=== PATIENT | female | born 1960 | race Caucasian/White ===

== ENCOUNTER 2025-09-12 13:07 | Emergency (ER) | payer OTHER, SELFPAY ==
--- OUTSIDE RECORDS SUMMARY | 2025-07-17 03:00 | XMS_ITS ---
Author Organization [facility] Address [address] [place] [address] Care Team Providers Care Enterprise Analyst Name Role Phone None, No PCP Primary Care Provider Ebenezer Santos Unavailable [phone] Maris Kaufman Unavailable Allergies No Known Allergies REASON FOR VISIT annual, pap, mammo, colon, std concerns, concerns, aml/building coordinator Encounters Encounter Location Date Provider Diagnosis [facility] [address] [place] [address] 07/17/2025 Maris Escoto Plan Of Treatment Next Appt Details Provider Name:Meredith ku, 01/29/2026 11:00:00 AM, [address], [address], [address], Progress Notes * KEZIAHAZEL LaimOB:[birth year] (65 yo F)Acc No.[id number]:07/17/2025 Patient:?[place] :?Maris Escoto, MDDOB:1960???Age:65 Y ???Sex:FemaleDate:07/17/2025Phone:[phone]:[address] [place], [place]-[address]Pcp:No PCP None Subjective: * Chief Complaints: * 1 . Annual. 2. Pap. 3. Mammo. 4. Colon. 5. Std concerns. 6. Concerns. 7. Aml/building coordinator. * Medical History: M edical History Verified. * Surgical History: D enies Past Surgical History. * Hospitalization/Major Diagno stic Procedure: D enies Past Hospitalization. * Family History: N o Family History documented.. * Medications: N one * Allergies: N .K.D.A. Objective: * Vitals: Assessment: Plan: * Treatment: * Preventive Medicine: ??YOUR PREVENTIVE WELLNESS PLAN:?Osteoporosis Screening (Bone Density Measurement):?My last bone density was done on:?Never, Under 65yr ?Osteoporosis Screening (Bone Density Measurement):?My last bone density was done on:?Never, Under 65yr Care Plan: * Problems: * Images: Billing Information: * Visit Code: * Procedure Codes: * Electronic signature of Maris Escoto MD on 09/12/2025 at 02:10 PM SCRUB WOMAN Sign off status: Pending * Provider: Gabrielle Escoto MD Date: Generated for Printing/Faxing/eTransmitting on:?09/12/2025 02:10 PM SCRUB WOMAN
--- OUTSIDE RECORDS SUMMARY | 2025-07-17 06:30 | XMS_ITS ---
Author Organization [facility] Address [address] [place] [address] Care Team Providers Care Pharmacist Intern Name Role Phone None, No PCP Primary Care Provider Unavailabl e Ebenezer Hubbard Unavailable [phone] [facility] Unavailable Unav ailable Encounters Encounter Location Date Provider Diagnosis [place] [address] [place] [address] 07/17/2025 [facility] Plan Of Treatment Next Appt Details Provider Name:Meredith ku, 01/29/2026 11:00:00 AM, [address], [address], [address], Progress Notes * Liam SORTOOB:[birth year] (65 yo F)Acc No.[id number]:07/17/2025 Patient:?[place] S[place]TO :?[facility] [place] [facility] CareDOB:1960???Age:65 Y???Sex:FemaleDate:07/17/2025Phone:[phone]:[address] [place], [place]Pcp:No PCP None Subjective: * Chief Complaints: * * Medical History: Objective: * Vitals: Assessment: Plan: * Treatment: * Images: Billing Information: * Visit Code: * Procedure Codes: * Electronic signature of [facility] on 09/12/2025 at 02:10 PM CASING BLOWER Sign off status: Pending * Provider: Juan Carlos [facility] Date: 1 Generated for Printing/Faxing/eTransmitting on:?09/12/2025 02:10 PM CASING BLOWER
[2025-09-12 13:14] VITALS: BP 176/99; PULSE 73; RESP 18; TEMP 36.6; O2SAT 98
--- NOTE | 2025-09-12 13:26 | ED.GENADULT ---
HPI - General Adult General Chief complaint: Hypertension Stated complaint: dizzy, high blood pressure Time Seen by Provider: 09/12/25 13:20 History of Present Illness HPI narrative: Patient presents to the emergency department complaining of hypertension. Patient states she had an appointment yesterday and her blood pressure was elevated. Patient started checking it today and continued to be elevated. Her new primary wanted to place her on blood pressure medication but patient declined. Patient also notes pain in her neck and light headedness for 2 weeks. 65-year-old woman presenting to the emergency department with concern of high blood pressure. Had an appointment yesterday with a new primary care provider and upon reviewing blood pressure is, plan was to initiate treatment. La was hesitant and was recommended for home blood pressure readings. She has continued to monitor her blood pressures and they have been elevated systolic in the 170s. No significant headache or visual changes. She has also been over the last few weeks experiencing episodes of dizziness, unsteadiness. This occurs with movement. She is uncertain exactly what but rolling over in bed can cause it as well as rotating while she is up and about. It is inconsistent. Does feel some nausea. Abdominal pain. No lower extremity edema. She has been struggling with sciatica for some time. Has seen a chiropractor. This is right-sided. Symptoms can however can go all the way to her toes. She has reproducible pain in her right mid buttock she demonstrates. No back pain. Has also been having soreness in her neck bilaterally. Tense. Becomes tearful which she says is not atypical as she is discussing some of these concerns. Pain here by appropriately attentive spouse. No chest pain. No shortness of breath. She has been a little congested nasopharynx. Related Data Home Medications ?Medication ?Instructions ?Recorded ?Confirmed bupropion HCl 300 mg 24 hr tablet, 300 mg PO DAILY 09/12/25 09/12/25 extended release clobetasol topical 09/12/25 dextroamphetamine-amphetamine 20 20 mg PO DAILY 09/12/25 09/12/25 mg tablet (Adderall) lamotrigine 100 mg tablet 100 mg PO DAILY 09/12/25 09/12/25 valacyclovir 500 mg .ROUTE 09/12/25 Previous Rx's ?Medication ?Instructions ?Recorded meclizine 25 mg tablet 25 mg PO TID PRN #15 tabs 09/12/25 Allergies Allergy/AdvReac Type Severity Reaction Status Date / Time No Known Drug Allergies Allergy Verified 09/12/25 13:22 Review of Systems Status of ROS: Reports: 6 or more systems reviewed and unremarkable except as noted in History and below [facility] Social History Smoking Status: Never smoker Do you use any of these nicotine containing products: None How often do you have a drink containing alcohol: monthly or less AUDIT-C Alcohol total score: 1 Non-prescribed substance use: denies use Exam Narrative: Exam Narrative: Very pleasant. NAD. Tearful later in the conversation. Head looks atraumatic. Cranial nerves 2-12 intact. She is moving all extremities without difficulty. She is well-perfused peripherally in lower extremities are without edema. Lungs appear clear. Heart in regular rate and rhythm. No murmur rub or gallop. TMs are clear. No facial swelling erythema or tenderness. Neck is quite tense in the posterior lateral musculature groups, sternocleidomastoid spur. No swelling appreciated here. Jose Raul-Hallpike maneuver does create symptoms with rotation to the left. Not convinced of nystagmus though. Doing these maneuvers and then going to set up also exacerbated her dizziness. Const: Vital Signs, click to edit/add: Vital Signs - 24 hr 09/12/25 13:14 09/12/25 15:40 Temperature 98 F Pulse Rate [Right Pulse Oximeter] 73 69 Respiratory Rate 18 19 Blood Pressure [Ri ght Upper Arm] 176/99 H 169/101 H Pulse Oximetry 98 96 Oxygen Delivery Me thod Room Air Room Air Documenting provider has reviewed patient's vital signs: yes Course Vital Signs Vital signs: Initial Vital Signs Temperature 98 F 09/12/25 13:14 Temperature Source Temporal Artery Scan 09/12/25 13:14 Pulse Rate 73 09/12/25 13:14 Pulse Rhythm Regular 09/12/25 13:14 Pulse Strength 3+ Normal 09/12/25 13:14 Respiratory Rate 18 09/12/25 13:14 Blood Pressure 176/99 H 09/12/25 13:14 Blood Pressure Mean 124 H 09/12/25 13:14 Blood Pressure Position Sitting 09/12/25 13:14 Pulse Oximetry 98 09/12/25 13:14 Oxygen Delivery Method Room Air 09/12/25 13:14 Vital Signs Temperature 98 F 09/12/25 13:14 Pulse Rate 73 09/12/25 13:14 Respiratory Rate 18 09/12/25 13:14 Blood Pressure 176/99 H 09/12/25 13:14 Pulse Oximetry 98 09/12/25 13:14 Oxygen Delivery Method Room Air 09/12/25 13:14 Temperature 98 F 09/12/25 13:14 Pulse Rate 69 09/12/25 15:40 Respiratory Rate 19 09/12/25 15:40 Blood Pressure 169/101 H 09/12/25 15:40 Pulse Oximetry 96 09/12/25 15:40 Oxygen Delivery Method Room Air 09/12/25 15:40 Medical Decision Making MDM Narrative Medical decision making narrative: Would appear that there a couple of things going on. Anxiety could be driving some of her symptoms including this high blood pressure. Pressures could be contributing to some of these had symptoms although does suggest inner ear pathology with [place]-Hallpike reproduction though with unconvincing nystagmus. Cervical muscle tension contributing to some disequilibrium some how as well? Trigger point of sorts? Also with some degree of sciatica. Might be partly related to piriformis syndrome? Discussed workup now vs following up after the weekend as planned in clinic. She would like to proceed with some lab work. Will also do an EKG as initial evaluation for hypertension. The labs are reassuring with very good renal function. EKG WNL as below See patient discharge plan for further discussion Seems like you might benefit from a massage :) Otherwise stretching out your neck a few times daily with gentle pull-downs as demonstrated. See also exercises for upper back stretching, strengthening. Given your description of your sciatic pain, I am giving you some other possibly relevant handouts for some exercises you might begin. Show these to provider who helps you make a more solid diagnosis. Also including Rich maneuvers. Your symptoms seem to be more focused on the left ear system. I would focus exercises on that side at this time. I also will send in a prescription of meclizine. Otherwise this is available in the form of Antivert [id number]. You might consider taking this, if not too sedating, 3 times daily over the next 4-5 days. Follow-up as planned with your primary care provider. We have included here a copy of your EKG and your labs done today. Medical Records Medical records reviewed: Yes I reviewed the patient's medical records Lab Data Lab results reviewed: Yes I reviewed the patient's lab results Labs: Lab Results 09/12/25 09/12/25 Range/Units 14:01 14:34 WBC 4.75 (4.50-11.00) K/uL RBC 4.16 (4.00-5.20) m/uL Hgb 12.7 (12.0-16.0) gm/dL Hct 38.6 (33.0-51.0) % MCV 93 (80-100) fL MCH 31 (26-34) pg MCHC 33 (32-36) gm/dL RDW Coeff of Candace 12.6 (11.5-15.5) % Plt Count 232 (140-440) K/uL Neut % (Auto) 57.0 (42.0-72.0) % Lymph % (Auto) 30.5 (20-44) % Aurora % (Auto) 6.9 (0.0-11.0) % Eos % (Auto) 4.8 (0.0-7.0) % Baso % (Auto) 0.4 (0.0-3.0) % Neut # (Auto) 2.70 (1.7-7.0) K/uL Lymph # (Auto) 1.45 (0.90-2.90) K/uL Aurora # (Auto) 0.30 (0.00-0.90) K/UL Eos # (Auto) 0.23 (0.00-0.50) K/uL Baso # (Auto) 0.02 (0.00-0.30) K/uL Abs Immat Gran (auto) 0.02 (0.00-0.30) K/uL Imm/Tot Granulo (auto) 0.4 % Sodium 137 (135-149) mmol/L Potassium 3.7 (3.6-5.1) mmol/L Chloride 101 (96-114) mmol/L Carbon Dioxide 29 (20-32) mmol/L Anion Gap 7 (7-15) mEq/L BUN 12 (7-30) mg/dL Creatinine 0.8 (0.5-1.5) mg/dL Estimated GFR 83 ml/min Glucose 102 (60-115) mg/dL Calcium 9.6 (8.4-10.6) mg/dL Total Bilirubin 0.5 (0.1-1.5) mg/dL Direct Bilirubin 0.1 (0.0-0.5) mg/dL AST 19 (12-35) U/L ALT 21 (4-35) U/L Alkaline Phosphatase 63 (40-150) U/L Total Protein 7.8 (6.0-8.3) g/dL Albumin 4.7 (3.3-5.0) g/dL Urine Color Yellow (Yellow) Urine Appearance Clear (Clear) Urine pH 7.5 (5.0-8.5) Ur Specific [place] 1.015 (1.000-1.030) Urine Protein Negative (Negative) Urine Glucose (UA) Negative (Negative) Urine Ketones Negative (Negative) Urine Blood Negative (Negative) Urine Nitrite Negative (Negative) Urine Bilirubin Negative (Negative) Urine Urobilinogen 0.2 (0.2-1.0) Ur Leukocyte Esterase Negative (Negative) Urine RBC 0-2 (0-2) Urine WBC 0-2 (0-5) Ur Squamous Epith Cells None (None-Few) Urine Bacteria None (None) ECG Data Attestation: I personally reviewed and interpreted this ECG as follows: (Normal sinus rhythm rate of 66. Without ischemic changes/strain) Discharge Plan Discharge Clinical Impression: Hypertension, Peripheral positional vertigo Patient Disposition: Home w/ Parent or Adult Condition: Improved Additional Instructions: Seems like you might benefit from a massage :) Otherwise stretching out your neck a few times daily with gentle pull-downs as demonstrated. See also exercises for upper back stretching, strengthening. Given your description of your sciatic pain, I am giving you some other possibly relevant handouts for some exercises you might begin. Show these to provider who helps you make a more solid diagnosis. Also including Rich maneuvers. Your symptoms seem to be more focused on the left ear system. I would focus exercises on that side at this time. I also will send in a prescription of meclizine. Otherwise this is available in the form of Antivert [id number]. You might consider taking this, if not too sedating, 3 times daily over the next 4-5 days. Follow-up as planned with your primary care provider. We have included here a copy of your EKG and your labs done today. Prescriptions: New meclizine 25 mg tablet 25 mg PO TID PRNQty: 15 1RF No Action bupropion HCl 300 mg tablet extended release 24 hr 300 mg PO DAILY dextroamphetamine-amphetamine [Adderall] 20 mg tablet 20 mg PO DAILY lamotrigine 100 mg tablet 100 mg PO DAILY clobetasol topical valacyclovir 500 mg .ROUTE Follow Up/Referrals: Provider,Not a Local [Primary Care Provider, Family Practice] Stand Alone Forms: Xray [employer] Info Instructions
--- OUTSIDE RECORDS SUMMARY | 2025-09-12 14:10 | XMS_ITS | Encounter Summary ---
Author Organization [facility] Address [address] [place] [address] Care Team Providers Care Launchman Name Role Phone Navya French M.D. Primary Care Provider [phone] Reason for Visit * ReasonCommentsMed Refill Encounter Details DateTypeDepartmentCare Team (Latest Contact Info)Hhvzxrngpyr70/22/2025Refill Department of Family Medicine in [place], [place] [address] [place] [address] Navya French M.D. [address] [place] [address] Med Refill Social History Tobacco UseTypesPacks/DayYears UsedDateSmoking Tobacco: NziczmQrrhdkskmi76 10/01/1979 - 10/01/1989mokeless Tobacco: NeverAlcohol UseStandard Drinks/Week CommentsYes3 (1 standard drink = 0.6 oz pure alcohol)Occasionally more - special occasionAHC UtilitiesAnswerDate RecordedIn the past 12 months has the electric, gas, oil, or water company threatened to shut off services in your home?No 07/04/2024Humiliation, Afraid, Rape, and Kick questionnaireAnswerDate Recorded Within the last year, have you been afraid of your partner or ex-partner?No 08/09/2022Within the last year, have you been humiliated or emotionally abused in other ways by your partner or ex-partner?No08/09/2022Within the last year, have you been kicked, hit, slapped, or otherwise physically hurt by your partner or ex-partner?No08/09/2022Within the last year, have you been raped or forced to have any kind of sexual activity by your partner or ex-partner?No08/09/2022 Hunger Vital SignAnswerDate RecordedWithin the past 12 months, you worried that your food would run out before you got the money to buymore.Never true07/04/2024 Within the past 12 months, the food you bought just didn't last and you didn't have money to get more.Never true4PRAPARE - TransportationAnswerDate RecordedIn the past 12 months, has lack of transportation kept you from medical appointments or from getting medications?No07/04/2024In the past 12 months, has lack of transportation kept you from meetings, work, or from getting things needed for daily living?No07/04/2024ostpartum DepressionAnswerDate RecordedPHQ- 9 Total Score (max 27)8111/21/2022Housing StabilityAnswerDate RecordedWhat is your living situation today?I have a steady place to live07/04/2024Education AnswerDate RecordedWhat is the highest level of school you have completed or the highest degree you have received?Bachelor's degree (e.g., BA, AB, BS)05/14/2019 CommentsNoSex and Gender InformationValueDate RecordedSex Assigned at RgzbtCdgjjn10/05/2018 1:38 PM CSTLegal RfwQqukye16/02/2017 9:35 PM CSTGender EbbeqtkxStdqri03/05/2018 1:38 PM CSTSexual QagvnefknixByaxoqzr26/05/2018 1:38 PM CSTOccupationIndustryJob Start DateJob End DateTechnology band ExaminerNot on fileNot on fileNot on filedocumented as of this encounter Miscellaneous Notes * Telephone Encounter - Eryn Joshua - 08/25/2025 1:17 PM CST Recent Visits No visits were found meeting these conditions. Showing recent visits within past 365 days with a meds authorizing provider and meeting all other requirements Future Appointments Date Type Provider Dept 10/05/25 Appointment Navya French M.D. [facility] Showing future appointments within next 90 days with a meds authorizing provider and meeting all other requirements PICKER documented in this encounter Plan of Treatment DateTypeDepartmentCare Team (Latest Contact Info)Cdifqkwxpek93/26/2025 10:00 AM CSTAppointment Department of Radiology in [place], [place] [address] [place] [address] Navya French M.D. [address] [place] [id number] 10/05/2025 3:20 PM CSTComprehensive Visit [facility] in [place], [place] [address] [place] [address] [address] Navya French M.D. [address] [place] [id number] documented as of this encounter Visit Diagnoses Diagnosis Herpes Simplex Labialis documented in this encounter Additional Health Concerns AssessmentNoted TimePHQ-9 Depression Total Score: 8111/21/2022 10:28 PM CRAB PICKER documented as of this encounter Care Teams Team MemberRelationshipSpecialtyStart DateEnd Date Navya French M.D. [address] [place] [address] PCP - General03/15/17documented as of this encounter
--- OUTSIDE RECORDS SUMMARY | 2025-09-12 14:11 | XMS_ITS | Clinical Summary ---
Author Organization [facility] Address [address] [place] [address] Care Team Providers Care Bulk Clerk Name Role Phone Navya French M.D. Primary Care Provider [phone] Source Comments Patient records contain information from all sites at [facility]. For routine questions regarding patient records, call [phone] during business hours, M-F 8:00 AM - 5:00 PM Central Time. Record requests for emergency care only can be directed to [phone] at any time.[facility] Allergies No known active allergies Medications * This document contains information received from the source organization and may not represent a complete record from that organization. MedicationSigDispense QuantityRefillsLast FilledStart DateEnd DateStatus MULTIVITAMIN ORAL Take by mouth daily.01/03/2010ctive lidocaine HCl 2 % cream Apply 5 mL topically once for 1 dose. 3 Bottle Active calcium carbonate-vitamin D3 500 mg-10 mcg (400 unit) tablet Take by mouth.Active coenzyme Q10 (CO Q-10) 200 mg capsule Take 400 mg by mouth daily.Active polyethylene glycol-electrolytes (GoLYTELY) 236-22.74-6.74 -5.86 gram solution Indications:General Medical Examination AdultDrink 1st portion of prep at 6 PM the evening before. 2nd portion must be started 3 hours before and finished 2 hours prior to report time 4000 mL 12/07/2023ctive Adderall XR 30 mg 24 hr capsule Take 1 capsule (30 mg total) by mouth daily. 30 capsule 12/12/2023ctive Adderall XR 30 mg 24 hr capsule Take 1 capsule (30 mg total) by mouth daily. 30 capsule 01/11/2024ctive Adderall XR 30 mg 24 hr capsule Take 1 capsule (30 mg total) by mouth daily. 30 capsule 02/10/2024ctive clobetasoL (Temovate) 0.05 % ointment APPLY 1 APPLICATION TOPICALLY DAILY 60 g ctive buPROPion XL (Wellbutrin XL) 300 mg 24 hr tablet Take 300 mg by mouth every morning.04/16/2024ctive lamoTRIgine (LaMICtaL) 100 mg tablet Take 1 tablet by mouth daily.04/02/2024ctive valACYclovir (Valtrex) 500 mg tablet Indications:Herpes Simplex LabialisTake 1 tablet (500 mg total) by mouth daily. Patient needs Office Visit for further refills. 90 tablet 08/26/2025tive valACYclovir (Valtrex) 500 mg tablet Indications:Herpes Simplex LabialisTAKE 1 TABLET (500 MG TOTAL) BY MOUTH DAILY. 90 tablet Discontinued Active Problems ProblemNoted DateDiagnosed DateHemorrhage Ojiszrhuzmyxtjsl59/08/2020Bleeding Gastrointestinal Kbehkve0212/06/2019Obstructive Sleep Apnea Adult05/13/2018 Attention Deficit With Hyperactivity Kkzjxzuh96/11/2018Lichen Sclerosus 07/11/2017Dyspareunia Female Belmuko1909/13/2016Bleeding Qhfahkfiif82/30/2016 Bleeding Idghjevvemrgkq99/30/2016Unspecified Afrlkonjnkz01/30/2016Depression Major Recurrent Keeohwpw65/24/2016Persistent Depressive Imphglus92/24/2016 Resolved Problems ProblemNoted DateDiagnosed DateResolved DateProblems In Relationship With Spouse Or Ofrxjzn80ipolar Iiunlrov64 Overview (02/20/2017): Bipolar disease NOS Depression Major Recurrent Mild05/19/2019 Encounters DateTypeDepartmentCare VnsoYvzybguahbf66/22/2025Refill Department of Family Medicine in [place], [place] [address] [place] [address] Navya French M.D. Med Refillfrom Last 3 Months Immunizations ImmunizationAdministration DatesNext DueInfluenza, Injectable, Mdck, Preservative Free, Zuwuoctmvrus60/14/2022Influenza, Qlyypyxfzcz18/27/2017, 06/10/2012RZV (SHINGRIX)09/14/2022,03/10/2022Tdap1,01/05/2010influenza vaccine quad (FLUZONE/FLUARIX) (6 months and older)(PF)09/12/2021,07/30/2020, 08/07/2019,07/31/2018 Family History Medical HistoryRelationNameCommentsADD / ADHDDaughter 1Jelba Villavicencio StougaardADDADD / ADHDDaughter 2Egumaroantonio HardingardADDBreast cancer (in one breast)Alvin CalvertTumor Cancer located in his [facility]Sh[facility] FatherMohsen Hardingfield SunnySaint [facility] cancerFatherMohsen Ferrell is 81. He has had a few spots removed over the years.Thyroid diseaseFatherMohsen Romero HauerPsychiatricMaternal GrandmotherMom's MomI don't know her nameAnxiety disorderMotherKay Del HauerDementiaMotherKay Del Hari had Alzheimers, and in 2013DepressionMotherKay Del HauerVitamin B12 deficiencyMotherKay Del HauerhypertensionMotherKay Del HauerAlcohol abusePaternal GrandfatherMohsen Hardingfield NehalBreast cancer (in one breast)Paternal GrandmotherMary Yarelis Calvert cancer freeNo Known ProblemsSister 1MauriDepressionSister 2GrechenRelation NameStatusCommentsDaughter 1Jelba WeinbergugaardAliveDaughter 2Esebastien Hardingfield HauerAliveMaternal GrandfatherDeceasedMaternal GrandmotherMom's MomDeceasedMotherKay Del HauerDeceasedPaternal Grandfather Mohsen Romero HauerDeceasedPaternal GrandmotherMary Yarelis CalvertDeceasedSister 1MauriAliveSister 2GrechenAlive Social History Tobacco UseTypesPacks/DayYears UsedDateSmoking Tobacco: ZhbsvkDdmmqcsctn91 10/01/1979 - 10/01/1989mokeless Tobacco: Never Tobacco Cessation:Counseling Given: Not Answered Alcohol UseStandard Drinks/WeekCommentsYes3 (1 standard drink = 0.6 oz pure alcohol)Occasionally more - special occasionAHC UtilitiesAnswerDate RecordedIn the past 12 months has the [employer], [employer], oil, or water [employer] threatened to shut off services in your home?No07/04/2024Humiliation, Afraid, Rape, and Kick questionnaireAnswerDate RecordedWithin the last year, have you been afraid of your partner or ex-partner?No08/09/2022Within the last year, have you been humiliated or emotionally abused in other ways by your partner or ex-partner?No 08/09/2022Within the last year, have you been kicked, hit, slapped, or otherwise physically hurt by your partner or ex-partner?No08/09/2022Within the last year, have you been raped or forced to have any kind of sexual activity by your part ner or ex-partner?No08/09/2022Hunger Vital SignAnswerDate RecordedWithin the past 12 months, you worried that your food would run out before you got the money to buymore.Never true07/04/2024Within the past 12 months, the food you bought just didn't last and you didn't have money to get more.Never true 07/04/2024RAPARE - TransportationAnswerDate RecordedIn the past 12 months, has lack of transportation kept you from medical appointments or from getting medications?No07/04/2024In the past 12 months, has lack of transportation kept you from meetings, work, or from getting things needed for daily living?No 07/04/2024ostpartum DepressionAnswerDate RecordedPHQ-9 Total Score (max 27)8 09/20/2023Housing StabilityAnswerDate RecordedWhat is your living situation today?I have a steady place to live07/04/2024EducationAnswerDate RecordedWhat is the highest level of school you have completed or the highest degree you have received?Bachelor's degree (e.g., BA, AB, BS)05/14/2019CommentsNoSex and Gender InformationValueDate RecordedSex Assigned at EdonjRqhepl14/05/2018 1:38 PM CSTLegal JaxAwukox00/02/2017 9:35 PM CSTGender QhubxqdlFqvghz83/05/2018 1:38 PM CSTSexual KbqktjoskieOnkpxwzb85/05/2018 1:38 PM CSTOccupationIndustryJob Start DateJob End DateTechnology band ExaminerNot on fileNot on fileNot on file Last Filed Vital Signs Vital SignReadingTime TakenCommentsBlood Nhroninj287/78012/07/2023 9:53 AM POLICE COMMANDING OFFICER Efiwz718712/07/2023 9:50 AM REAWyjlxeemkhu94.1 ??C (98.8 ??F)12/08/2019 5:58 AM CDTRespiratory Seap781512/08/2019 5:58 AM CDTOxygen Bxscjyzlbv41%12/08/2019 5:58 AM CDTInhaled Oxygen Concentration--Qrfjru32.4 kg (155 lb 4.8 oz)12/07/2023 9:50 AM XXFMfddib199.2 cm (5' 7)12/07/2019 1:14 AM CSTBody Mass Index24.3203 1:14 AM POLICE COMMANDING OFFICER Plan of Treatment DateTypeDepartmentCare Team (Latest Contact Info)Pqdmctfedvc41/26/2025 10:00 AM CSTAppointment Department of Radiology in [place], [place] [address] [place] [address] Navya French M.D. [address] [place] [address] 10/05/2025 3:20 PM CSTComprehensive Visit [facility] in [place], [place] [address] [place] [phone] Navya French M.D. [address] [place] [address] [place] [address] Health MaintenanceDue DateLast DoneCommentsCT Xhydlzcjudrn1962FIT 1962HIV Dkiftdfqi75/25/0894Bebxgxciv18/09/202311/06/2020, 07/26/2017, 07/11/2017Depression Monitoring (PHQ-9)/3Depression Monitoring (PHQ-9 for quality tracking)5COVID-19 Vaccine ( season) /08/2024, 07/29/2023, 03/10/2022, Additional history existsInfluenza Vaccine (#1)/, 06/21/2023, 09/13/2022, Additional history apmnswKvdweibrm61/04/202510/12/2023, 12/04/2022, 07/04/2021, Additional history existsCervical/Vaginal Cancer Ueyadfsgp71, 07/30/2020, 07/11/2017, Additional history existsFasting Glucose for Diabetes Screening /05/2024, 12/07/2023, 05/03/2023, Additional history existsLipid (Cholesterol) Ysrnyxajk72/05/2024, 05/03/2023, 10/16/2022, Additional history existsDTaP,Tdap,and Td Vaccines (3 - Td or Tdap), 01/05/20100628Qrqfdxtpkrb02 (Performed elsewhere), 10/01/2012 (Performed elsewhere), 06/17/2012, Additional history existsColorectal Cancer Qqidtesez69/01/2034Hepatitis C EwvgdbtqjOuztuzdgq65/31/2018Zoster Vaccines Chxvfagtl30/15/2022, 2Pneumococcal vaccine (50+ years)Completed 11/29/2024IPV VaccinesAged OutNo longer eligible based on patient's age to complete this topic Medical Devices ImplantedTypeAreaManufacturerDevice IdentifierShelf Expiration DateModel / Serial / LotBreast ImplantBreast ImplantBilateral: Breast Procedures Procedure NamePriorityDate/TimeAssociated DiagnosisCommentsBI BREAST SCREENING BILATERAL WITH TOMOSYNTHESISRAD - Routine (most inpatients and all outpatients) 07/04/2024 11:18 AM CDT Screening Mammogram Breast Cancer HEMOGLOBIN A1C, RCqjzdne96/08/2024 10:59 AM POLICE COMMANDING OFFICER General Medical Examination Adult LIPID PANEL, HYguelms66/08/2024 10:59 AM POLICE COMMANDING OFFICER General Medical Examination Adult ZKSKOMESGAmkrtyh55/09/2020 8:30 AM POLICE COMMANDING OFFICER General Medical Examination Adult THINPREP W/HPV CO-TEST XODGJQAkrglpa50/30/2020 9:15 AM CDT General Medical Examination Adult HCV AB SCRN W/REFLEX TO HCV PCR, VScnzlhq49/31/2018 7:39 AM POLICE COMMANDING OFFICER Screening Test Laboratory GPCGQYUXIXKUofqkgn75/17/2012 from Last 3 Months or Most Recently Relevant to Health Maintenance Results * BI Breast Screening Bilateral with Tomosynthesis (07/04/2024 11:18 AM CDT) Anatomical RegionLateralityModalityBreast, Breast Imaging RST LOS, Breast Imaging ARZ LOS, Breast Imaging FLA LOSBilateralMammographySpecimen (Source) Anatomical Location / LateralityCollection Method / VolumeCollection Time Received Time Impressions 07/04/2024 12:06 PM CDT Negative. RECOMMENDATION: ??Annual Screening Mammogram ASSESSMENT: ??BI-RADS: 1: Negative. Narrative 07/04/2024 12:06 PM CDT EXAM: BI BREAST SCREENING BILATERAL WITH TOMOSYNTHESIS Current study was evaluated with a Computer Aided Detection (CAD) system. INDICATION: ??Screening mammogram. COMPARISON: ??Prior exam(s) were available and reviewed for comparison. DENSITY: ??c. The breast(s) are heterogeneously dense, which may obscure small masses. FINDINGS: ??No findings of malignancy. ??No significant change since prior exam. Bilateral siliconeimplants. Procedure Note Jimmie Cloud M.D. - 07/04/2024 EXAM: BI BREAST SCREENING BILATERAL WITH TOMOSYNTHESIS Current study was evaluated with a Computer Aided Detection (CAD) system. INDICATION: Screening mammogram. COMPARISON: Prior exam(s) were available and reviewed for comparison. DENSITY: c. The breast(s) are heterogeneously dense, which may obscuresmall masses. FINDINGS: No findings of malignancy. No significant change since priorexam. Bilateral silicone implants. IMPRESSION: Negative. RECOMMENDATION: Annual Screening Mammogram ASSESSMENT: BI-RADS: 1: Negative. Authorizing ProviderResult TypeResult StatusChaun Sumit French M.D.IMG BI PROCEDURES Final Result * (ABNORMAL) Lipid Panel (12/07/2023 10:59 AM POLICE COMMANDING OFFICER)ComponentValueRef RangeTest MethodAnalysis TimePerformed AtPathologist SigdntzlhLiexhcygszpya398kt/dL 12/07/2023 3:07 PM CSTMKTOComment: ----REFERENCE VALUE---- Normal: <150 mg/dL Borderline High: 150-199 mg/dL High: 200-499 mg/dL Very High: > or =500 mg/dL Cholesterol, Nizya830(H)mg/dL12/07/2023 3:07 PM CSTMKTOComment: ----REFERENCE VALUE---- Desirable: < 200 mg/dL Borderline High: 200 - 239 mg/dL High: > or = 240 mg/dL Cholesterol, LDL, Jdbrpnioyw659kp/dL12/07/2023 3:07 PM CSTMKTOComment: ----REFERENCE VALUE---- Desirable: <100 mg/dL Above Desirable: 100-129 mg/dL Borderline High: 130-159 mg/dL High: 160-189 mg/dL Very High: >=190 mg/dL ----ADDITIONAL INFORMATION---- LDL cholesterol calculated using the Glass/NIH equation. Cholesterol, HDL78>=50 mg/dL12/07/2023 3:07 PM CSTMKTOCholesterol, Non-HDL, Vvrgjccqgv182ur/dL12/07/2023 3:07 PM CSTMKTOComment: ----REFERENCE VALUE---- Desirable: <130 mg/dL Above Desirable: 130-159 mg/dL Borderline High: 160-189 mg/dL High: 190-219 mg/dL Very High: > or =220 mg/dL Fasting (8 HR or more)Yes12/07/2023 2:36 PM CSTMKTOSpecimen (Source)Anatomical Location / LateralityCollection Method / VolumeCollection TimeReceived TimeBlood (Blood, Venous)12/07/2023 10:59 AM CST12/07/2023 2:36 PM POLICE COMMANDING OFFICER Narrative Authorizing ProviderResult TypeResult StatusaNvya French M.D.LAB BLOOD ADD-ON Final ResultPerforming OrganizationAddressCity/State/[facility] HospitalPhone Number [facility] [address] [place] [address] * Hemoglobin A1c (12/07/2023 10:59 AM POLICE COMMANDING OFFICER)ComponentValueRef RangeTest Method Analysis TimePerformed AtPathologist SignatureHemoglobin A1c, B5.44.2 - 5.6 % 12/07/2023 3:05 PM CSTMKTOSpecimen (Source)Anatomical Location / Laterality Collection Method / VolumeCollection TimeReceived TimeBlood (Blood, Venous) 12/07/2023 10:59 AM CST12/07/2023 2:36 PM POLICE COMMANDING OFFICER Narrative Authorizing ProviderResult TypeResult StatusNavya French M.D.LAB BLOOD ADD-ON Final ResultPerforming OrganizationAddressCity/State/[facility] HospitalPhone Number [facility] [address] [place] [address], [place] [address] * Cologuard (08/09/2020 8:30 AM POLICE COMMANDING OFFICER)ComponentValueRef RangeTest MethodAnalysis TimePerformed AtPathologist SignatureResultNegativeNot Praobiewei64/14/2020 12:46 PM CSTEXLIComment: A negative result indicates a low likelihood that a colorectal cancer (CRC) or an advanced adenoma (adenomatous polyps with more advanced pre-malignant features) is present. The chance that a person with a negative Cologuard test has a colorectal cancer is less than 1 in 1500 (negative predictive value >99.9%) or has an advanced adenoma is less than 5.3% (negative predictive value 94.7%). These data are based on a prospective cross-sectional screening study of 10,000 individuals at average risk for colorectal cancer who were screened with both Cologuard and colonoscopy. (Denny Kwan al, N Engl J Med 2014;370(14):3634-5855) The normal value (reference range) for this assay is negative. COLOGUARD RE-SCREENING RECOMMENDATION: Periodic routine colorectal cancer screening is an important part of preventive healthcare for asymptomatic persons at average risk for colorectal cancer. Following a negative Cologuard result, the [place] Cancer Society and U.S. Multi-Society Task Force screening guidelines recommend a Cologuard re-screening interval of 3 years. References: [employer] Cancer Society (ACS). Colorectal cancer prevention and early detection. [place], [place]: [place] [employer] Society; [updated 2015Jan 22]. https://www.cancer.org/cancer/majpv-snfmjv-zjicfa/detection- diagnosis-staging/acs-recommendations.html. Accessed May 31, 2018; Demar DK, Gurwinder BRANDON, Sarahi GriffithsK, Colorectal Cancer Screening: Recommendations for Physicians and Patients from the U.S. Multi-Society Task Force on Colorectal Cancer Screening, Am J Gastroenterology 2017; 112:7224-4230. TEST TYPE: Composite algorithmic analysis of stool DNA-biomarkers with hemoglobin immunoassay. ??Quantitative values of individual biomarkers are not reportable and are not associated with individual biomarker result reference ranges. PRECAUTIONS AND LIMITATIONS: Cologuard is intended for colorectal cancer screening of adults of either sex, 45 years or older, who are at average-risk for colorectal cancer (CRC). Cologuard has been approved for use by the U.S. FDA. Cologuard may produce a false negative or false positive result. A negative Cologuard test result does not guarantee the absence of CRC or advanced adenoma (pre-cancer). Patients with a negative Cologuard test result should be advised to continue participating in a colorectal cancer screening program. The screening interval for Cologuard is currently recommended at an interval of every 3 years by the [place] Cancer Society and U.S. Multi-Society Task Force. A false positive result occurs when Cologuard produces a positive result, even though a colonoscopy may not find colorectal cancer or precancerous polyps. The performance of Cologuard has been established in a cross sectional study (i.e., single point in time) of average-risk adults aged 50-84. Cologuard performance in patients ages 45 to 49 years was estimated by sub-group analysis of near-age groups. Cologuard performance data in a 10,000 patient pivotal study using colonoscopy as the reference method can be accessed at the following location: www.[employer]/results. Additional description of the Cologuard test process, warnings and precautions can be found at www.cologuardtest.com. Rx only. Specimen (Source)Anatomical Location / LateralityCollection Method / Volume Collection TimeReceived TimeStool (Stool)08/09/2020 8:30 AM CST08/10/2020 2:34 PM POLICE COMMANDING OFFICER Narrative Authorizing ProviderResult TypeResult StatusChaun Sumit French M.D.LAB BODY FLUIDS AND STOOLS ORDERABLESFinal ResultPerforming OrganizationAddressCity/State/ZIP Code Phone Number [employer] [address] [place] [id number] [employer] [address] [place] [address], [address] [place] [address] * ThinPrep w/HPV Co-Test Screen (07/30/2020 9:15 AM CDT)ComponentValueRef Range Test MethodAnalysis TimePerformed AtPathologist SignatureCase Number [id number]/05/2020 9:07 AM CSTHKCYReport electronically signed byADA Whitehead (ASCP) I verify that I have examined all relevant slides/materials for the specimen(s) and rendered or confirmed the diagnosis. 08/05/2020 9:07 AM CSTHKCYGross DescriptionReceived specimen in a ThinPrep vial. 08/05/2020 9:07 AM CSTKCYPap Test SourceCervical/Idrladymadpr48/05/2020 9:07 AM CSTHKCYInterpretationCervical/Endocervical ??(ThinPrep): Satisfactory for Evaluation Negative for Intraepithelial Lesion or Malignancy High Risk HPV: ??Negative Negative for High Risk HPV by nucleic acid amplification. The following High Risk HPV types were not detected: 16, 18, 31, 33, 35, 39, 45, 51, 52, 56, 58, 59, 66, and 68. 08/05/2020 9:07 AM CSTHKCYSpecimen (Source)Anatomical Location / Laterality Collection Method / VolumeCollection TimeReceived TimeVaries (Cervix/Endocervix) 07/30/2020 9:15 AM CDT1 11:43 AM CDT Narrative Authorizing ProviderResult TypeResult StatusNavya French M.D.LAB PAP PATHDX ORDERABLESFinal ResultPerforming OrganizationAddressCity/State/ZIP CodePhone Number [facility] [address] [place] [address], [facility] [address] [place] [address] * HCV Ab Scrn w/Reflex to HCV PCR (10/31/2017 7:39 AM POLICE COMMANDING OFFICER)ComponentValueRef RangeTest MethodAnalysis TimePerformed AtPathologist SignatureHCV Ab Screen, S YkplncekYpnuidnk35/01/2018 8:09 AM CSTFLAGSTAFF MEDICAL CENTERComment:Xlbgma-ob-bbncyr ratio is <1.00.Specimen (Source)Anatomical Location / LateralityCollection Method / VolumeCollection TimeReceived Time Blood (Blood, Venous)10/31/2017 7:39 AM CST11/01/2017 6:33 AM POLICE COMMANDING OFFICER Narrative Authorizing ProviderResult TypeResult StatusNavya French M.D.LAB MICROBIOLOGY - BLOOD ORDERABLESFinal ResultPerforming OrganizationAddressCity/State/ZIP Code Phone Number [facility] [address] [place] [address] * Colonoscopy (06/17/2012)ComponentValueRef RangeTest MethodAnalysis Time Performed AtPathologist SignatureEXT ColonoscopyAbnormal - See Scanned Report for DetailsNormal - See Scanned Report for Details, HIM[facility] - Report Received and ScannedComment:See Notes. Colonoscopy June 17, 2012, due again for repeat in 5 years.Anatomical RegionLateralityModalityEndoscopy Narrative Authorizing ProviderResult TypeResult StatusHistorical ProviderGI PROCEDURE ORDERABLESFinal Result from Last 3 Months or Most Recently Relevant to Health Maintenance Insurance Advance Directives For more information, please contact: [phone] * Full Code (Latest Code Status on File) Date ActivatedDate InactivatedComments12/07/2019 1:01 AM12/08/2019 2:45 PMQuestion AnswerCommentsFull Code:* Not Discussed Due to:* Not medically appropriate Care Teams Team MemberRelationshipSpecialtyStart DateEnd Date Navya French M.D. [address] [place] [id number] PCP - General03/15/17
--- OUTSIDE RECORDS SUMMARY | 2025-09-12 14:11 | XMS_ITS | Clinical Summary ---
Author Organization [facility] Address [address] [place] [address] Care Team Providers Care Lap Polisher Name Role Phone Unavailable Primary Care Provider Unavailabl e Source Comments You are receiving this document as you are listed as the primary care provider,follow-up provider, or the patient has been referred to you for consultation.This is in compliance with the Medicare and[facility] EHR Incentive Program,which states Providers who transition their patient to another setting of careor provider of care or refers their patient to another provider of care shouldprovide summary care record for each transition of care or referral. [facility] Allergies No known active allergies Medications MedicationSigDispense QuantityRefillsLast FilledStart DateEnd DateStatus valACYclovir (VALTREX) 500 MG tablet Take 1 Tablet (500 mg) by mouth daily.08/19/2021ctive clobetasol (TEMOVATE) 0.05 % ointment Apply topically daily.03/08/2022ctive estradiol (ESTRACE) 0.1 MG/GM vaginal cream Insert 1 g vaginally three times a week.03/08/2022ctive amoxicillin-clavulanate (AUGMENTIN) 875-125 mg per tablet Take 1 Tablet by mouth two times a day. Take with food or milk. 7 Tablet 03/24/2022ctive omeprazole (PRILOSEC) 20 MG capsule Take 2 Capsules (40 mg) by mouth daily. Take 1 hour before a meal. 60 Capsule 05/04/2022ctive buPROPion (WELLBUTRIN XL) 300 MG 24 hour release tablet Take 1 Tablet (300 mg) by mouth every morning.02/27/2025tive lamoTRIgine (LAMICTAL) 100 MG tablet Take 1 Tablet (100 mg) by mouth daily.5Active ADDERALL XR 20 MG 24 hour release capsule Take 1 Capsule (20 mg) by mouth daily.5Active Active Problems No known active problems Encounters DateTypeDepartmentCare DyvjPojyczqrfou77/23/2025 10:20 AM CDTOffice Visit [facility] [address] [place] [id number] Madyson Godfrey MD Nausea; Adverse effect of drug, initial mqonubgok34/20/2025 2:40 PM CDTOffice Visit [facility] [address] [place] [address] Colton Gaffney MD Cat bite, initial encounterfrom Last 3 Months Social History Tobacco UseTypesPacks/DayYears UsedDateSmoking Tobacco: NeverSmokeless Tobacco: Never Tobacco Cessation:Counseling Given: Not Answered CommentsNoSex and Gender InformationValueDate RecordedSex Assigned at BirthNot on fileLegal RgaYmowtj08/03/2021 7:30 AM CDTGender IdentityNot on file Sexual OrientationNot on file Last Filed Vital Signs Vital SignReadingTime TakenCommentsBlood Stgieazx252/8107/23/2025 10:20 AM CDT Jdpcb140107/23/2025 10:20 AM KGYCgurljyiufn63.4 ??C (97.5 ??F)07/23/2025 10:20 AM CDTRespiratory Kbwp0856 10:20 AM CDTOxygen Mooorxqors240%07/23/2025 10:20 AM CDTInhaled Oxygen Concentration--Weight--Height--Body Mass Index-- Plan of Treatment DateTypeDepartmentCare Team (Latest Contact Info)Yfonfhykneo06/28/2026 10:45 AM CDTAppointment [facility] [address] [place] [address] Orestes Riddle MD [address] [place], [place] [id number] Health MaintenanceDue DateLast DoneCommentsCervical Cancer Screening Due 2Colon Cancer Screening Plan Due1962Hep C Screening (Preventive Services)1960 8109Bbaywifse1962HIV Screening (Preventive Services) 1978Adult Preventive Visit1980DTaP/Tdap/Td Vaccine (1 - Tdap) 06/25/19817218Cbpridkggbe86/25/2007Zoster/Shingles Vaccine (2 of 2)11/09/2022 2RSV Vaccine (1 - 1-dose 75+ series)2037Pneumococcal Vaccine 50+ WekMpyhunokd55/01/2025COVID-19 JuwohftNyzaflwls82/20/2025, 07/12/2024, 07/29/2023, Additional history existsInfluenza LwdvnjqDpvrdudfh01/27/2025, 06/24/2024, 06/21/2023, Additional history existsHepA VaccineAged OutNo longer eligible based on patient's age to complete this topicHepB VaccineAged OutNo longer eligible based on patient's age to complete this topicHib VaccineAged Out No longer eligible based on patient's age to complete this topicIPV (Polio) VaccineAged OutNo longer eligible based on patient's age to complete this topic MCV4 VaccineAged OutNo longer eligible based on patient's age to complete this topicMeningococcal B VaccineAged OutNo longer eligible based on patient's age to complete this topic Insurance
--- OUTSIDE RECORDS SUMMARY | 2025-09-12 14:11 | XMS_ITS | Patient Health Record ---
Author Organization [facility] Address [address] [place] [address] Care Team Providers Care 911 Telecommunicator Name Role Phone None, No PCP Primary Care Provider Unavailabl e Ebenezer Hubbard Unavailable [phone] [facility] Unavailable Unav ailable Lease Maris Escoto Unavailable Allergies No Known Allergies Reason For Referral No Information Plan Of Treatment Next Appt Details Provider Name:Meredith ku, 01/29/2026 11:00:00 AM, [address], EDWIGE [facility], [place], [address], Insurance Providers Payer Name Payer Address Payer Phone Subscriber Number Group Number Insured Name Patient Relationship to Insured Coverage Start Date Coverage End Date [facility] Commercial (Ins. Bill) [address] [address] [place], [place] [id number] La Garcia Self - patient is the insured
--- OUTSIDE RECORDS SUMMARY | 2025-09-12 14:11 | XMS_ITS | Clinical Summary ---
Author Organization [facility] Address [address] [place] [address] Care Team Providers Care Crushed Stone Grader Name Role Phone Navya French MD Primary Care Provider [phone] Allergies No known active allergies Medications MedicationSigDispense QuantityRefillsLast FilledStart DateEnd DateStatus HYDROcodone-acetaminophen (NORCO) 5-325 MG tablet Take 1 tablet by mouth every 6 hours as needed for pain 10 tablet 08/26/2022ctive Social History Tobacco UseTypesPacks/DayYears UsedDateSmoking Tobacco: Never AssessedAdolescent EducationAnswerDate RecordedGetting School Help NeededNot on file06/23/2023 CommentsNoSex and Gender InformationValueDate RecordedSex Assigned at BirthNot on fileLegal QouAfjgcn18/08/2021 2:21 PM CSTGender IdentityNot on file Sexual OrientationNot on file Last Filed Vital Signs Vital SignReadingTime TakenCommentsBlood Dkqdrknc839/9206 12:26 PM CDT Bwvqg207003/16/2025 12:26 PM DEXQpnyamrmdob07.7 ??C (98 ??F)03/16/2025 12:26 PM CDTRespiratory Yhps623003/16/2025 12:26 PM CDTOxygen Tlkzyzdlpx57%03/16/2025 12:26 PM CDTInhaled Oxygen Concentration--Zhtilj92.5 kg (140 lb)03/16/2025 10:48 AM RECEdirge041.2 cm (5' 7)03/16/2025 10:48 AM CDTBody Mass Index21.9303/16/2025 10:48 AM CDT Plan of Treatment Health MaintenanceDue DateLast DoneCommentsADVANCE CARE JEMUVTJA1962ANNUAL REVIEW OF HM JVNYKJ552CT HIQMFPTTVHEC1962DIABETES SCREENING 1962FIT1962HIV PMLIMRPBZ35/25/7469WAUHQ86/25/4107CVG8707/30/2020sDNA (Cologuard)PHQ-2 (once per calendar year) 5YEARLY PREVENTIVE VISIT503/05/2024, 10/19/2022, 10/19/2021, Additional history existsCOVID-19 VACCINE ( season)2025 07/12/2024, 07/29/2023, 03/10/2022, Additional history existsINFLUENZA VACCINE (#1)509/, 06/21/2023, 09/13/2022, Additional history existsMAMMO BZUYMLUFL15/04/298037/12/2023, 07/04/2024, 12/04/2022, Additional history exists FLEX SIG/4DTAP/TDAP/TD VACCINE (3 - Td or Tdap)07/30/2030 07/30/2020, 01/05/20106043UJXCFVRYUIP28/01/295975/10/2023, 06/17/2012COLORECTAL CANCER RYSTYDCPZ36/01/2034HEPATITIS C HJMSFAOPCCuhcgbfvx43/31/2018ZOSTER VACCINE Bdbihmbxk90/15/2022, 2PNEUMOCOCCAL VACCINE 50+ GNVKUVclvmjrtq78/01/2025 RSV FPRNDROJofhfvurp20/01/2025HPV VACCINE (No Doses Required)CompletedMENINGITIS VACCINEAged OutNo longer eligible based on patient's age to complete this topic Insurance Care Teams Team MemberRelationshipSpecialtyStart DateEnd Navya French MD [address] [place] [address] PCP - GeneralFamily Medicine03/16/25
[2025-09-12 14:26] LABS: Appearance Urine Clear (Clear)
[2025-09-12 14:44] LABS: Hematocrit* 38.6 % (33.0-51.0); Hemoglobin* 12.7 gm/dL (12.0-16.0); Immature Granulocytes Abs Auto 0.02 K/uL (0.00-0.30); Immature Granulocytes Pct Auto 0.4 %; Lymphocytes Absolute Auto 1.45 K/uL (0.90-2.90); Mean Corpuscular HGB Conc 33 gm/dL (32-36); Mean Corpuscular Hemoglobin 31 pg (26-34); Mean Corpuscular Volume 93 fL (80-100); RDW Coefficient of Variation % 12.6 % (11.5-15.5); Red Blood Count* 4.16 m/uL (4.00-5.20); White Blood Count* 4.75 K/uL (4.50-11.00)
[2025-09-12 14:48] LABS: Slide Review Reflex No
[2025-09-12 14:55] LABS: Albumin* 4.7 g/dL (3.3-5.0); Chloride* 101 mmol/L (96-114)
[2025-09-12 14:56] LABS: Potassium* 3.7 mmol/L (3.6-5.1); Sodium* 137 mmol/L (135-149)
[2025-09-12 14:58] LABS: Alanine Aminotransferase* 21 U/L (4-35); Anion Gap 7 mEq/L (7-15); Aspartate Amino Transferase* 19 U/L (12-35); Blood Urea Nitrogen* 12 mg/dL (7-30); Carbon Dioxide* 29 mmol/L (20-32); Creatinine* 0.8 mg/dL (0.5-1.5); Estimated Glomerular Filt Rate 83 ml/min
[2025-09-12 14:59] LABS: Alkaline Phosphatase* 63 U/L (40-150); Bilirubin Direct* 0.1 mg/dL (0.0-0.5); Bilirubin Total* 0.5 mg/dL (0.1-1.5); Calcium* 9.6 mg/dL (8.4-10.6); Glucose* 102 mg/dL (60-115); Total Protein* 7.8 g/dL (6.0-8.3)
[2025-09-12 15:40] VITALS: BP 169/101; PULSE 69; RESP 19; O2SAT 96
== END 2025-09-12 15:48 | disposition home or self-care (01) ==
PROVIDERS: Emergency Provider Family Medicine
DX: I10 Essential (primary) hypertension (principal); H81.12 Benign paroxysmal vertigo, left ear
CPT/HCPCS: 36415; 80048; 80076; 81001; 85025; 93005; 99284